=== PATIENT | male | born 1980 | race Caucasian/White ===

== ENCOUNTER 2022-12-20 10:42 | Outpatient (CLI) | payer OTHER, SELFPAY | END 2022-12-20 10:43 | disposition home or self-care (01) | PROVIDERS: Visit Provider Family Medicine | DX: R42 Dizziness and giddiness (principal) | CPT/HCPCS: A0998 ==

== ENCOUNTER 2024-08-08 13:08 | Outpatient (CLI) | payer OTHER, SELFPAY | END 2024-08-08 13:09 | disposition home or self-care (01) | LOC: FRMREF 13:10 | PROVIDERS: PCP Nurse Practitioner Family; Visit Provider Nurse Practitioner Family | DX: E66.3 Overweight (principal); Z13.6 Encounter for screening for cardiovascular disorders; Z13.9 Encounter for screening, unspecified | CPT/HCPCS: 80053; 80061 ==